=== PATIENT | female | born 1960 | race Caucasian/White ===

== ENCOUNTER 2024-08-04 12:39 | Emergency (ER) | payer OTHER, SELFPAY ==
[2024-08-04 12:44] VITALS: BP 164/93
[2024-08-04 15:44] LABS: % Basophils 0.1 % (0-2); % Eosinophils 2.6 % (0-6); % Immature Granulocytes 0.4 % (0-0.5); % Lymphocytes 21.5 % (20.5-51.1); % Monocytes 6.2 % (1.7-9.3); % Neutrophils 69.2 % (42.2-75.2); Absolute Eosinophils 0.2 10^3/uL (0-0.7); Absolute Lymphocytes 1.6 10^3/uL (1.2-3.4); Absolute Monocytes 0.5 10^3/uL (0.1-0.6); Absolute Neutrophils 5.1 10^3/uL (1.4-6.5); Hematocrit 44.5 % (37.0-47.0); Hemoglobin 14.5 g/dL (12.0-16.0); Mean Corp Hgb Conc. 32.6 g/dL (33.0-37.0); Mean Corpuscular Hgb 29.7 pg (27.0-31.0); Mean Platelet Volume 9.3 fL (7.4-10.4); Nucleated Red Blood Cells % 0 %; Platelet Count 296 10^3/uL (130-400); Red Blood Cell Count 4.89 10^6/uL (4.20-5.40); Red Cell Dist. Width 12.2 % (11.5-14.5); White Blood Cell Count 7.3 10^3/uL (4.8-10.8)
[2024-08-04 15:58] LABS: ALT (SGPT) 36 U/L (0-35); AST (SGOT) 26 U/L (14-36); Albumin 4.6 g/dl (3.5-5.0); Alkaline Phosphatase 132 U/L (38-126); Blood Urea Nitrogen 19 mg/dl (7-17); Calcium 9.6 mg/dl (8.4-10.2); Carbon Dioxide 29 mmol/L (22-30); Chloride 99 mmol/L (98-107); Glucose 112 mg/dl (70-99); Potassium 4.3 mmol/L (3.5-5.1); Sodium 137 mmol/L (135-145); Total Bilirubin 1.7 mg/dl (0.2-1.3); Total Protein 7.4 g/dl (6.3-8.2); eGFR > 60.00
--- NOTE | 2024-08-04 17:13 | ED.GENMED ---
History of Present Illness
General
Chief Complaint: Fall
Source: patient
Exam Limitations: none
Time Seen by Provider: 08/04/24 14:56
Nursing documentation reviewed up to this point in time: agreed with
History of Present Illness
History of Present Illness:
pt is a 63 y/o F
h/o HTN, HLD
here with L rib pain, L elbow pain and L shoulder pain after mechanical fall 2 days ago
pt says she tripped over a rug
she had no head strike, headache, neck pain, LOC
she has had pain in her L ribs with movement but it got worse when she coughed yesterday; pt has been having a lingering cough after having uri for a few dyas
she is improving but after she coughed she felt a pop in the L ribs
she has not felt SOB
pain is worse with mvoement and breathing
no heamturia
no thinners
also having L elbow pain, sweling and pain with movement
the pain is shooting up to the L shoulder as well
no numbness/tingling/weakness
Past History
Past History
ED Past Medical History: CAD, HTN, Hypercholesterolemia, [place] and Other
ED Past Surgical History: Cardiac and Orthopedic
Social History
Tobacco: Former smoker (Quit cigarettes 15 years ago)
Alcohol: Daily (1-2 glasses of wine)
Drug: None
Personal:
Living: with family
Employment: Employed (Self-employed)
Family History
Family History: Hypertension; Negative CAD
Review of Systems
Review of Systems
Allergies reviewed?: Yes
All Other Systems: Not applicable
Phy Exam
Physical Exam
Physical Exam:
GENERAL: Alert , in no apparent distress
HEAD: NCAT
NECK: no midline tenderness, active ROM intact, no paraspinal muscle tenderness;
EYE: pupils equal and reactive, EOMs intact.
ENT: o/p clr, mmm. no hemotympanum
CARDIAC: Regular rate and rhythm, no edema
LUNGS: Clear breath sounds bilaterally, no acute respiratory distress, no wheezes/rales/rhonchi
ches wall: tender L ribs
ABDOMEN: Soft, mild L flank and LUQ tenderness no r/g, no cvat
NEUROLOGICAL: Alert and oriented, no focal neuro deficits, CN intact, 5/5 strength, sensation intact
SKIN: Warm and dry,
MUSCULOSKELETAL: mild STS R elbow, superficilal abrasion, full ROM, mild pain with flexion past 90 degrees
shoulder nontender
full rom
PSYCH: Normal and appropriate interaction.
Course
Orders/Labs/Results
Orders:
Orders
08/04/24 12:47
Elbow, 3 view, Left [CR Elbow - Left Min 3 Views ] Urgent
Comment:
Reason For Exam: fall
Ribs, Left 3 View W/PA Chest CR [CR Ribs-left 3 Vw W/pa Chest] Urgent
Comment:
Reason For Exam: fall
Shoulder, Left, Trauma CR [CR Shoulder, Trauma - Left] Urgent
Comment:
Reason For Exam: injury
08/04/24 15:21
CT Chest/abd/pel W Iv Cont Urgent
Comment:
Reason For Exam: L rib pain, L flank pain and abd tender, fall
08/04/24 15:35
Complete Blood Count/With Diff Urgent
Comprehensive Metabolic Panel Urgent
08/04/24 17:45
Sling Left-Treatment ONCE
Incentive Spirometry [Rx Incentive Spirometry] [RESP] Urgent
Frequency: q1h while awake
Abnormal Lab Results
08/04/24
15:35
MCHC 32.6 L g/dL
(33.0-37.0)
BUN 19 H mg/dl
(7-17)
Glucose 112 H mg/dl
(70-99)
Total Bilirubin 1.7 H mg/dl
(0.2-1.3)
ALT 36 H U/L
(0-35)
Alkaline Phosphatase 132 H U/L
(38-126)
08/04/24 15:35
08/04/24 15:35
Vital Signs
Initial and Last Documented VS:
Initial Vital Signs
Temp Pulse Resp BP Pulse Ox
36.6 C 62 16 164/93 99
08/04/24 12:44 08/04/24 12:44 08/04/24 12:44 08/04/24 12:44 08/04/24 12:44
Last Documented Vital Signs
Temp Pulse Resp BP Pulse Ox
36.6 C 62 16 164/93 99
08/04/24 12:44 08/04/24 12:44 08/04/24 12:44 08/04/24 12:44 08/04/24 12:44
ED Attending Note
-
Portions of this chart may have been created with voice recognition software.� Occasional wrong word or��sound alike� substitutions may have occurred due to the inherent limitations of voice recognition software.
Discharge Plan
Departure
Prescriptions:
No Action
atorvastatin 80 MG tablet
80 mg PO DAILY
metoprolol tartrate 25 MG tablet
25 mg PO DAILY
lisinopril 20 MG tablet
20 mg PO DAILY Qty: 0 0RF
Rx Instructions:
*HOLD SYSTOLIC BLOOD PRESSURE <135
tramadol 50 MG tablet
50 mg PO QID Qty: 0 0RF
Rx Instructions:
TAKE QID Q6H X 7 DAYS WITH TYLENOL
sulfamethoxazole-trimethoprim 1 TABLET tablet
1 tab PO BID Qty: 14 0RF
Referrals:
Tristian Garcia MD [Family Provider] -
Interventions
Interventions:
*Risk Screen - Suicide Last Done: 08/04/24 12:44
*General Assessment Last Done: 08/04/24 14:28
*Neglect/Abuse Screening Last Done: 08/04/24 12:44
ED- Fall Risk Assessment Last Done: 08/04/24 14:25
*ED COVID-19 Vaccine History Last Done: 08/04/24 14:28
ED-Musculoskeletal Assessment Last Done: 08/04/24 14:23
ED- Neurological Assessment Last Done: 08/04/24 14:23
ED-Skin Assessment Last Done: 08/04/24 14:23
Discharge Date and Time
Print Language: VINCENTIAN
[2024-08-04] MEDS: ROXICODONE 5 MG PO (18:10)
[2024-08-04 18:16] VITALS: BP 152/89
== END 2024-08-04 18:22 | disposition home or self-care (01) ==
LOC: EMR 12:39
PROVIDERS: Physician Assistant; EMERGENCY PHYSICIAN Student in an Organized Health Care Education/Training Program; FAMILY PHYSICIAN Internal Medicine
DX: R07.81 Pleurodynia (principal); M25.512 Pain in left shoulder; M25.522 Pain in left elbow; W18.09XA Striking against other object with subsequent fall, initial encounter; I25.10 Atherosclerotic heart disease of native coronary artery without angina pectoris; I10 Essential (primary) hypertension; E78.00 Pure hypercholesterolemia, unspecified; I25.2 Old myocardial infarction; Z87.891 Personal history of nicotine dependence
CPT/HCPCS: 99284; 71101; 71260; 73030; 73080; 74177; 80053; 85025; Q9967

== ENCOUNTER → 2024-09-21 06:37 | Outpatient (REF) | payer OTHER, SELFPAY | LOC: MRI 06:37 | PROVIDERS: ATTENDING PHYSICIAN Psychiatry & Neurology Neurology; FAMILY PHYSICIAN Internal Medicine | DX: G95.9 Disease of spinal cord, unspecified (principal) | CPT/HCPCS: 70551; 72141 ==

== ENCOUNTER 2025-01-21 16:16 | Emergency (ER) | payer BC, SELFPAY ==
--- NOTE | 2025-01-21 22:46 | ED.MUSCINJ ---
HPI-Injury
General
Chief Complaint: Musculo-Skeletal Complaint
Source: patient
Exam Limitations: none
Time Seen by Provider: 01/21/25 16:46
Nursing documentation reviewed up to this point in time: agreed with
History of Present Illness-Injury
Is this injury a work related problem?: No
Is pt an associate of [facility]?: No
Initial Injury comments:
Patient to ED after stubbing left 2nd toe yesterday. COmplains of pain and bruising to toe. Brought self to ED for eval.
Past History
Past History
ED Past Medical History: CAD, HTN, Hypercholesterolemia, [place] and Other
ED Past Surgical History: Cardiac and Orthopedic
Social History
Tobacco: Former smoker (Quit cigarettes 15 years ago)
Alcohol: Daily (1-2 glasses of wine)
Drug: None
Personal:
Living: with family
Employment: Employed (Self-employed)
Family History
Family History: Hypertension; Negative CAD
Review of Systems
Review of Systems
Allergies reviewed?: Yes
All Other Systems: ROS reviewed and negative except as documented in HPI and ROS
Constitutional: Reports no symptoms
Musculoskeletal: Reports joint pain (pain and bruising to left 2nd toe)
Skin: Reports no symptoms
Neurological: Reports no symptoms
Psychiatric: Reports no symptoms
Musculoskeletal Injury Exam
Musculoskeletal Injury Exam
Left Second Toe:
Pain with Movement?: Moderate
Tender to palpation?: Moderate
Soft tissue swelling?: Mild
External deformity and angulation?: None
Joint effusion?: None
Contusion?: Moderate
Hematoma-local bleeding into tissue?: Mild
Strain- Sprain- Tear (Connective tissue injury)?: None
Crepitus with movement?: No
Joint instability?: No
Malalignment/deformity?: No
Range of motion: Limited
Distal skin color and temperature: normal-warm & good color
Capillary Refill: normal
Normal distal neurovascular exam?: Yes
Peripheral Pulses: dorsalis pedis (left): 3+
Phy Exam
General Physical Exam
General Presentation: well appearing and no apparent distress
General age: appears stated age
General Skin: warm and dry
General Habitus: normal
Musculoskeletal Exam
Musculoskeletal Exam: full ROM and neuro vasc intact
Skin Exam
Skin Exam: normal color, warm/dry and no rash
Psychiatric Exam
Psychiatric Exam: normal mood/affect
Injury Course
Orders/Labs/Results
Orders:
Orders
01/21/25 16:27
Toes 2 Views, Left CR [CR Toe(s) Min 2 Vw Left] Urgent
Comment:
Reason For Exam: left 2nd toe injury with bruising
Indicate Which Toe:: Second
*Radiology
Radiology exam reviewed: radiology read reviewed
*Pulse Oximetry
SaO2: 98
Oxygen Mode of Delivery: Room air
Patient hypoxic: no
*Critical Care Note
Total Time (30-74mins, 75-104mins- exclusive of procedures): Not Applicable
ED Attending Note
-
Portions of this chart may have been created with voice recognition software.� Occasional wrong word or��sound alike� substitutions may have occurred due to the inherent limitations of voice recognition software.
Discharge Plan
Departure
Patient Disposition: Home (Routine Discharge)
Date of Disposition: 01/21/25
Time of Disposition: 17:09
Patient with high blood pressure during this ER visit?: No
Condition: Good
Covid-19: Not Applicable
Discharge Problem:
Contusion of toe
Instructions: Contusion (DC), Using Cold for Pain
Prescriptions:
No Action
atorvastatin 80 MG tablet
80 mg PO DAILY
metoprolol tartrate 25 MG tablet
25 mg PO DAILY
lisinopril 20 MG tablet
20 mg PO DAILY Qty: 0 0RF
Rx Instructions:
*HOLD SYSTOLIC BLOOD PRESSURE <135
tramadol 50 MG tablet
50 mg PO QID Qty: 0 0RF
Rx Instructions:
TAKE QID Q6H X 7 DAYS WITH TYLENOL
sulfamethoxazole-trimethoprim 1 TABLET tablet
1 tab PO BID Qty: 14 0RF
oxycodone 5 mg tablet
5 mg PO Q8H PRN (Reason: Pain) Qty: 12 0RF
Referrals:
Tristian Garcia MD [Family Provider, Internal Medicine] - Follow up in 2-3 days
Interventions
Interventions:
*Risk Screen - Suicide Last Done: 01/21/25 17:21
*General Assessment Last Done: 01/21/25 17:21
*Neglect/Abuse Screening Last Done: 01/21/25 17:21
*ED- Fall Risk Assessment Last Done: 01/21/25 17:21
*ED COVID-19 Vaccine History Last Done: 01/21/25 17:21
*Nursing Disposition Last Done: 01/21/25 17:21
ED-Musculoskeletal Assessment Last Done: 01/21/25 17:21
Discharge Date and Time
Discharge Date/Time: 01/21/25 17:10
Print Language: LITHUANIAN
== END 2025-01-21 17:10 | disposition home or self-care (01) ==
LOC: EMR 16:16
PROVIDERS: EMERGENCY PHYSICIAN Emergency Medicine; FAMILY PHYSICIAN Internal Medicine
DX: S90.122A Contusion of left lesser toe(s) without damage to nail, initial encounter (principal); X58.XXXA Exposure to other specified factors, initial encounter; I10 Essential (primary) hypertension; E78.00 Pure hypercholesterolemia, unspecified; I25.10 Atherosclerotic heart disease of native coronary artery without angina pectoris; M19.90 Unspecified osteoarthritis, unspecified site; I25.2 Old myocardial infarction; Z95.5 Presence of coronary angioplasty implant and graft; Z96.652 Presence of left artificial knee joint; Z87.891 Personal history of nicotine dependence; M43.22 Fusion of spine, cervical region
CPT/HCPCS: 99283; 73660